=== PATIENT | female | born 1975 | race Caucasian/White ===

== ENCOUNTER 2016-10-27 13:58 | Emergency (ER) | payer MEDICAID, OTHER ==
[~2016-10-27] VITALS: Ht 175.3 cm; Wt 87.0 kg
[2016-10-27] MEDS ORDERED: HERBS (15:03)
[2016-10-27 16:34] VITALS: BP 108/68
== END 2016-10-27 16:36 | disposition home or self-care (01) ==
LOC: ED 16:30
DX: M79.672 Pain in left foot (principal)
CPT/HCPCS: 99284